=== PATIENT | female | born 1965 | race Caucasian/White ===

== ENCOUNTER 2017-08-14 11:11 | Emergency (ER) | payer MEDICARE ==
[~2017-08-14] VITALS: Ht 160 cm; Wt 75.0 kg
[2017-08-14 11:13] VITALS: BP 156/67; PULSE 72; RESP 15; TEMP 98.5; O2SAT 96
--- NOTE | 2017-08-14 11:37 | PD ---
HPI Chief Complaint: Injury Time Seen by Provider: 11:37 Travel History International Travel<30 days: No Contact w/Intl Traveler<30days: No Traveled to known affect area: No History of Present Illness HPI 31-year-old female presents to emergency Department with complaint of right thumb pain and swelling after slamming it in a car door yesterday. Reports decreased range of motion and paresthesias to the thumb. Denies loss of sensation. Has not taken any medications or tried any treatments to alleviate her symptoms. Pain is aggravated with palpation and movement. Symptoms are mild in severity. Describes as Throbbing sensation. Allergies to narcotics, sulfa, Toradol, methylprednisolone, sumatriptan. No other medical complaints. No other modifying factors or associated signs and symptoms. PFSH Past Medical History ?: Not Social History Tobacco Use: No Allergies-Medications (Allergen,Severity, Reaction): Coded Allergies: Sulfa (Sulfonamide Antibiotics) (Verified Allergy, Severe, ANAPHALACTIC, 08/14/17) ketorolac (Verified Allergy, Severe, ANAPHALACTIC, 08/14/17) methylprednisolone (Verified Allergy, Severe, ANAPHALACTIC, 08/14/17) sumatriptan (Verified Allergy, Severe, ANAPHALACTIC, 08/14/17) Uncoded Allergies: NARCOTICS (Adverse Reaction, Severe, HAS MS, 08/14/17) Review of Systems Except as stated in HPI: all other systems reviewed are Neg Physical Exam Narrative GENERAL: Well-nourished, well-developed female patient, in no acute distress SKIN: Warm and dry. HEAD: Atraumatic. Normocephalic. EYES: Pupils equal and round. No scleral icterus. No injection or drainage. ENT: Mucosa pink and moist. Airway patent. NECK: Trachea midline. CARDIOVASCULAR: Regular rate. RESPIRATORY: No accessory muscle use. GASTROINTESTINAL: Rounded. MUSCULOSKELETAL: Right thumb is edematous and with some ecchymosis noted; without erythema; unable to assess range of motion at the PIP joint secondary to patient guarding and pain; full ROM at the MCP joint; with tenderness on palpation; no obvious deformity; sensory intact; less than 3 second cap refill; pink and warm. Right upper extremity supplemented with 2+ radial pulse and sensory intact without erythema or edema. No obvious deformities. No clubbing. No cyanosis. No edema. NEUROLOGICAL: Awake and alert. Oriented 3. No obvious cranial nerve deficits. Motor grossly within normal limits. Normal speech. PSYCHIATRIC: Appropriate mood and affect; insight and judgment normal. Data Data Last Documented VS Vital Signs Date Time Temp Pulse Resp B/P (MAP) Pulse Ox O2 Delivery O2 Flow Rate FiO2 08/14/17 11:13 98.5 72 15 156/67 (96) 96 Orders Orders Finger ([id number]) (08/14/17 ) Ed Discharge Order (08/14/17 12:14) Splint Or Brace Apply/Monitor (08/14/17 12:14) [facility] Medical Decision Making Medical Screen Exam Complete: Yes Emergency Medical Condition: Yes Medical Record Reviewed: Yes Differential Diagnosis Thumb contusion, thumb fracture, thumb dislocation Narrative Course 51-year-old female with right thumb injury. I offered the patient an ice pack or pain medication and she declined. Right thumb x-ray ordered. 1211: Right thumb x-ray concludes: Nondisplaced corner fracture distal phalanx involving the PIP joint. Finger splint and Chema bandage applied for support. Instructed patient to take [id number] medication as instructed and as needed for pain management. Instructed patient to follow up with primary care provider. Patient verbalizes understanding and agreement with treatment plan. Patient is medically cleared and stable for discharge. Discussed reasons to return to the emergency department. Patient agrees with treatment plan. The patients vital signs are stable and the patient is stable for outpatient follow-up and treatment. Patient discharged home, stable and in no acute distress. Diagnosis Primary Impression: Fracture of thumb, right, closed Qualified Codes: S62.524A - Nondisplaced fracture of distal phalanx of right thumb, initial encounter for closed fracture Referrals: Primary Care Physician Patient Instructions: Finger Fracture (ED), General Instructions Additional Instructions: Tylenol or ibuprofen as directed and as needed to reduce pain Rest, ice, compress, and elevate extremity to decrease pain and inflammation Chema wrap for support Avoid aggravating activity; increase activity as tolerated Follow-up with primary care provider Return to the emergency department immediately with worsening symptoms Med/Other Pt SpecificInfo: No Meds Exist/No RX given Disposition: 01 DISCHARGE HOME Condition: Stable Carly Matt Aug 14, 2017 11:37
--- NOTE | 2017-08-14 12:07 | RADRPT ---
EXAM DATE/TIME: 08/14/2017 11:55 [facility] COMPARISON: No previous studies available for comparison. INDICATIONS : Right thumb pain and bruising after smashing it in car door. MEDICAL HISTORY : Multiple sclerosis. SURGICAL HISTORY : None. ENCOUNTER: Initial ACUITY: 1 day PAIN SCORE: 8/10 LOCATION: Right thumb FINDINGS: Nondisplaced corner fracture distal phalanx involving the PIP joint. CONCLUSION: Small corner fracture as described above. Randy Back MD FACR on August 14, 2017 at 12:05 Board Certified Radiologist. This report was verified electronically.
== END 2017-08-14 12:36 | disposition home or self-care (01) ==
LOC: NEPK 11:11
DX: S62.524A Nondisplaced fracture of distal phalanx of right thumb, initial encounter for closed fracture (principal); W22.8XXA Striking against or struck by other objects, initial encounter
CPT/HCPCS: 29130; 73140

== ENCOUNTER 2017-11-09 21:03 | Emergency (ER) | payer MEDICARE ==
[~2017-11-09] VITALS: Ht 162.6 cm; Wt 77.3 kg
[2017-11-09 21:07] VITALS: BP 169/77; PULSE 76; RESP 16; TEMP 98.5; O2SAT 98
[2017-11-09] MEDS ORDERED: ACETAMINOPHEN 325 MG TAB PO ONE (21:45)
[2017-11-09 22:05] LABS: BILIRUBIN, URINE NEG (NEG); GLUCOSE,URINE NEG (NEG); KETONE, URINE NEG (NEG); NITRITE,URINE NEG (NEG); PH, URINE 5.5 (5.0-8.5); URINE LEUKOCYTE ESTERASE NEG (NEG)
[2017-11-09 22:06] LABS: BLOOD, URINE TRACE (NEG)
--- NOTE | 2017-11-09 22:10 | PD ---
HPI Chief Complaint: Complaint Time Seen by Provider: 21:21 Travel History International Travel<30 days: No Contact w/Intl Traveler<30days: No Traveled to known affect area: No History of Present Illness HPI Patient is a 51 year old female who comes in complaining of lower abdominal pain and sore throat. She says she has a burning pain in her lower abdomen that is worse with urination. She also says her throat has been sore for three weeks, but recently has felt like it was closing. She says she took some benadryl which did not seem to help. She has not taken anything for pain. After leaving the room, the patient informed the nurse she was concerned she may have gonorrhea or syphilis. She says that over a month ago she thinks she had intercourse, but she is not sure because she was very intoxicated. She says she had gonorrhea and syphilis 21 years ago and is concerned she could have contracted it again. She reports a foul odor, but no discharge. She has not seen any vaginal lesions or ulcers. [facility] Past Medical History Anxiety: Yes COPD: Yes (COPD AND EMPHYSEMA ) Diminished Hearing: No Hypertension: Yes Medical other: Yes (MS ) Psychiatric: Yes (PTSD ) Tetanus Vaccination: > 5 Years Influenza Vaccination: No ?: Unknown Tubal Ligation: Yes Past Surgical History Section: Yes Cholecystectomy: Yes Thoracic Surgery: Yes (Alex NOLAND) Social History Alcohol Use: Yes (OCC) Tobacco Use: Yes (11/03 PPD ) Substance Use: No Allergies-Medications (Allergen,Severity, Reaction): Coded Allergies: Sulfa (Sulfonamide Antibiotics) (Verified Allergy, Severe, ANAPHALACTIC, ) ketorolac (Verified Allergy, Severe, ANAPHALACTIC, 11/09/17) methylprednisolone (Verified Allergy, Severe, ANAPHALACTIC, 11/09/17) sumatriptan (Verified Allergy, Severe, ANAPHALACTIC, 11/09/17) Uncoded Allergies: NARCOTICS (Adverse Reaction, Severe, HAS MS, 08/14/17) Reported Meds & Prescriptions Reported Meds & Active Scripts Active Reported Losartan (Losartan Potassium) 100 Mg Tab 100 Mg PO HS Diazepam 10 Mg Tab 10 Mg PO BID Metoprolol Tartrate 100 Mg Tab 100 Mg PO DAILY Review of Systems General / Constitutional: No: Fever, Chills HENT: No: Headaches, Lightheadedness Cardiovascular: No: Chest Pain or Discomfort Respiratory: No: Shortness of Breath Gastrointestinal: Positive: Abdominal Pain, No: Nausea, Vomiting Genitourinary: Positive: Urgency, Frequency, Dysuria, No: Discharge Musculoskeletal: No: Myalgias, Edema Skin: No Rash, No Change in Pigmentation Neurologic: No: Weakness, Dizziness Physical Exam Narrative GENERAL: Awake and alert, in no acute distress. SKIN: Focused skin assessment warm/dry. HEAD: Atraumatic. Normocephalic. EYES: Pupils equal and round. No scleral icterus. EOMI. ENT: Mucous membranes pink and moist. CARDIOVASCULAR: Regular rate and rhythm. No murmur appreciated. RESPIRATORY: No accessory muscle use. Clear to auscultation. Breath sounds equal bilaterally. GASTROINTESTINAL: Abdomen soft, nondistended. Tender to the suprapubic area. No rebound or guarding. : exam performed in the presence of a female nurse. No cervical lesions. No vaginal lesions. No discharge seen. No CMT. NEUROLOGICAL: Awake and alert. No obvious cranial nerve deficits. Motor grossly within normal limits. Normal speech. Data Data Last Documented VS Vital Signs Date Time Temp Pulse Resp B/P (MAP) Pulse Ox O2 Delivery O2 Flow Rate FiO2 11/09/17 21:07 98.5 76 16 169/77 (107) 98 Orders Orders Urinalysis - C+S If Indicated (11/09/17 21:32) Gc And Chlamydia Pcr (11/09/17 21:32) Wet Prep Profile (11/09/17 21:32) Rapid Plasma Regin (Rpr) W Ttr (11/09/17 21:32) Acetaminophen (Tylenol) (11/09/17 21:45) Labs Laboratory Tests Test 11/09/17 21:40 11/09/17 21:50 11/09/17 22:15 Urine Color YELLOW Urine Turbidity CLEAR Urine pH 5.5 Urine Specific [place] 1.023 Urine Protein NEG mg/dL Urine Glucose (UA) NEG mg/dL Urine Ketones NEG mg/dL Urine Occult Blood TRACE Urine Nitrite NEG Urine Bilirubin NEG Urine Leukocyte Esterase NEG Urine Squamous Epithelial Cells 0-5 /hpf Urine Bacteria OCC /hpf Urine Mucus FEW /lpf Microscopic Urinalysis Comment CULT NOT INDICATED Clue Cells (Wet Prep) PRESENT Vaginal Trichomonas (Wet Prep) NONE SEEN Vaginal Yeast (Wet Prep) NONE SEEN MDM Medical Decision Making Medical Screen Exam Complete: Yes Emergency Medical Condition: Yes Medical Record Reviewed: Yes Differential Diagnosis UTI vs BV vs gonorrhea/chlamydia Narrative Course Patient is a 51 year old female who comes in complaining of suprapubic pain and dysuria. She is concerned for STDs. Exam shows no evidence of gonorrhea or chlamydia or syphilis. Swab sent for wet prep and gc/chlamydia PCR. RPR sent for syphilis testing. Patient given Tylenol for pain. Wet prep is positive for cells. Urinalysis is negative for UTI. Patient will be treated with Flagyl for BV. Informed she will need to get the results of the GC and Chlamydia as well as syphilis testing. Patient is comfortable with this plan. Advised to follow-up with a income tax manager. Advised to return to the ED as needed for any worsening symptoms. Diagnosis Primary Impression: Bacterial vaginosis Patient Instructions: Bacterial Vaginosis (ED), General Instructions Additional Instructions: Follow-up with gynecology. Take all of your antibiotic. Do not drink alcohol while taking this antibiotic as it will make you violently ill. Drink plenty of fluids. Return to the ED as needed for any worsening symptoms. Scripts Metronidazole (Flagyl) 500 Mg Tab 500 MG PO BID for Infection for 7 Days, #14 TAB 0 Refills Prov: Cindy Rodriges MD 11/09/17 Disposition: 01 DISCHARGE HOME Condition: Stable Cindy Rodriges MD Nov 09, 2017 22:10
[2017-11-09] MEDS ORDERED: METO100T PO (22:12)
[2017-11-09] MEDS ORDERED: DIAZ10TA PO (22:12)
[2017-11-09] MEDS ORDERED: LOSA100T PO (22:13)
[2017-11-09 22:20] LABS: MUCUS URINE FEW /lpf (OCC); SQUAMOUS EPITHELIAL CELL URINE 0-5 /hpf (0-5); URINE COLOR YELLOW (YELLW/STRAW)
[2017-11-09 22:21] LABS: BACTERIA, URINE OCC /hpf
[2017-11-09] MEDS ORDERED: METR-1 PO (22:38)
[2017-11-09 22:53] VITALS: BP 124/72; TEMP 98.6
== END 2017-11-09 23:01 | disposition home or self-care (01) ==
LOC: PHED 21:03
DX: N76.0 Acute vaginitis (principal); J44.9 Chronic obstructive pulmonary disease, unspecified; I10 Essential (primary) hypertension; F43.10 Post-traumatic stress disorder, unspecified; F17.200 Nicotine dependence, unspecified, uncomplicated
CPT/HCPCS: 81001; 86592; 87210; 87491; 87591; 99283